=== PATIENT | female | born 1990 | race Caucasian/White ===

== ENCOUNTER 2018-05-08 16:09 | Emergency (ER) | payer MEDICAID, OTHER ==
[~2018-05-08] VITALS: Ht 157.5 cm; Wt 72.2 kg
[2018-05-08 17:16] LABS: BASOPHILS % (AUTO) 0.3 % (0-1); EOSINOPHILS # (AUTO) 0.1 X10'3 (0-0.9); HEMATOCRIT 35.9 % (35.0-45.0); HEMOGLOBIN 12.3 g/dl (12.0-16.0); LYMPHOCYTES # (AUTO) 1.8 X10'3 (1.1-4.8); MEAN CORPUSCULAR HEMOGLOBIN 31.1 PG (27.0-31.0); MEAN CORPUSCULAR HGB CONC 34.4 % (33.0-36.5); MEAN CORPUSCULAR VOLUME 90.5 FL (78-98); MEAN PLATELET VOLUME 8.2 FL (7.4-10.4); MONOCYTES # (AUTO) 0.7 X10'3 (0-0.9); MONOCYTES % (AUTO) 7.6 % (2-12); NEUTROPHILS # (AUTO) 7.1 X10'3 (1.8-7.7); NEUTROPHILS % (AUTO) 73.1 % (42-75); PLATELET COUNT 202 X10'3 (140-440); RED BLOOD COUNT 3.96 X10'6 (4.20-5.60); RED CELL DISTRIBUTION WIDTH 12.6 % (11.5-14.5); WHITE BLOOD COUNT 9.7 X10'3 (4.5-11.0)
[2018-05-08] MEDS ORDERED: ondansetron/PF 4mg/2ml inj IV ONE (17:20)
[2018-05-08] MEDS ORDERED: morphine 4 MG/ML inj SYRINge IV ONE (17:20)
[2018-05-08 17:25] LABS: INR 1.2 INR; PROTHROMBIN TIME 12.4 SECONDS (9.0-12.0)
[2018-05-08 17:33] LABS: ALANINE AMINOTRANSFERASE 30 U/L (12-78); ALBUMIN 3.4 G/DL (3.4-5.0); ALKALINE PHOSPHATASE 75 IU/L (46-116); ANION GAP 10 (8-16); ASPARTATE AMINO TRANSFERASE 10 U/L (10-37); BILIRUBIN,TOTAL 0.4 MG/DL (0.1-1.0); BLOOD UREA NITROGEN 4 MG/DL (7-18); BUN/CREATININE RATIO 4.1 (6.6-38.0); CALCIUM 8.5 MG/DL (8.5-10.1); CHLORIDE 101 MMOL/L (99-107); CREATININE 0.97 MG/DL (0.40-0.90); GLUCOSE 92 MG/DL (70-104); LIPASE 115 U/L (73-393); POTASSIUM 3.2 MMOL/L (3.5-5.1); SODIUM 136 MMOL/L (135-145); TOTAL CARBON DIOXIDE 24.7 MMOL/L (24-32); TOTAL PROTEIN 6.9 G/DL (6.4-8.2); eGFR 68 ML/MIN
[2018-05-08] MEDS ORDERED: normal saline 1000ML IV soln IVB ONE (17:40)
[2018-05-08 17:56] LABS: URINE HCG NEGATIVE (NEG)
[2018-05-08 18:02] LABS: UA COLLECTION TYPE CLN CATCH MIDSTREAM
[2018-05-08 18:03] LABS: CLARITY,URINE CLOUDY (Clear); COLOR,URINE YELLOW (Yellow); GLUCOSE, URINE NEGATIVE (Neg); KETONES,URINE 15 mg/dl (Neg); LEUKOCYTE ESTERASE ,URINE MODERATE (Neg); NITRITES, URINE NEGATIVE (Neg); OCCULT BLOOD,URINE MODERATE (Neg); PROTEIN,URINE NEGATIVE (Neg); UROBILINOGEN,URINE 0.2 E.U/dL (0.2-1.0)
[2018-05-08 18:18] LABS: BACTERIA,URINE FEW /HPF (Neg); SQUAMOUS EPITHELIAL CELL,UR FEW /LPF (FEW); WBC,URINE TNTC /HPF (0-4)
[2018-05-08] MEDS ORDERED: SULF1TAB49 PO (18:53)
[2018-05-08] MEDS ORDERED: HYDR-569 PO (19:11)
[2018-05-08 19:15] VITALS: BP 105/64
== END 2018-05-08 19:16 | disposition home or self-care (01) ==
LOC: ER 16:09
DX: N12 Tubulo-interstitial nephritis, not specified as acute or chronic (principal); Z79.899 Other long term (current) drug therapy
CPT/HCPCS: 36415; 76700; 80053; 81001; 81025; 83690; 85025; 85610; 87077; 87088; 87186; 96361; 96374; 96375; 99285; J2270; J2405; J7030

== ENCOUNTER 2019-07-07 21:49 | Emergency (ER) | payer MEDICAID, OTHER ==
[~2019-07-07] VITALS: Ht 157.5 cm; Wt 81.8 kg
[~2019-07-07 21:49] MED LIST: HYDR-4383 PO
[2019-07-07 21:54] VITALS: BP 124/68
--- NOTE | 2019-07-07 22:30 | NUR ---
PT C/O LEFT ARM PAIN, CANNOT LIFT ABOVE SHOULDER AND CRACKED TOOTH
[2019-07-07] MEDS ORDERED: cyclobenzaprine 10mg tablet PO ONE (23:05)
[2019-07-07] MEDS ORDERED: triamcinolone acetonide 40mg/ml inj IM ONE (23:15)
[2019-07-07] MEDS ORDERED: AMOX500C2 PO (23:32)
[2019-07-07] MEDS ORDERED: CHLO473M3 PO (23:32)
[2019-07-07] MEDS ORDERED: LIDO700A32 TOP (23:38)
== END 2019-07-07 23:49 | disposition home or self-care (01) ==
LOC: ER 21:50
DX: S46.812A Strain of other muscles, fascia and tendons at shoulder and upper arm level, left arm, initial encounter (principal); M54.2 Cervicalgia; K08.89 Other specified disorders of teeth and supporting structures; K02.9 Dental caries, unspecified; R20.0 Anesthesia of skin; Z79.899 Other long term (current) drug therapy; X50.9XXA Other and unspecified overexertion or strenuous movements or postures, initial encounter; Y93.89 Activity, other specified; Y92.89 Other specified places as the place of occurrence of the external cause; Y99.8 Other external cause status
CPT/HCPCS: 73030; 96372; 99283; J3301

== ENCOUNTER 2019-10-05 16:11 | Emergency (ER) | payer MEDICAID ==
[~2019-10-05] VITALS: Ht 157.5 cm; Wt 83.4 kg
[~2019-10-05 16:11] MED LIST changes: +CHLO473M3 PO; +LIDO700A32 TOP
[2019-10-05 16:50] VITALS: BP 113/79
[2019-10-05] MEDS ORDERED: PENI500T2 PO (17:17)
[2019-10-05] MEDS ORDERED: IBUP-1984 PO (17:17)
[2019-10-05] MEDS ORDERED: HYDROcodone/acetaminophen 5mg/325mg tablet PO ONE (17:20)
[2019-10-05] MEDS ORDERED: ondansetron 4mg rapidly disintigrating tab PO ONE (17:20)
== END 2019-10-05 17:53 | disposition home or self-care (01) ==
LOC: ER 16:11
DX: K02.9 Dental caries, unspecified (principal); R51 Headache; Z79.899 Other long term (current) drug therapy
CPT/HCPCS: 99283

== ENCOUNTER 2020-01-04 17:59 | Emergency (ER) | payer MEDICAID ==
[~2020-01-04] VITALS: Ht 157.5 cm; Wt 77.8 kg
--- NOTE | 2020-01-04 19:21 | NUR ---
UPDATED PLAN OF CARE WITH PATIENT . PATIENT REPORTS TOOTH PAIN A 04/05 . WILL NOTIFY RAIMUNDO CHAN OF PT CURRENT WAIT TIME AND PAIN STATUS
[2020-01-04] MEDS ORDERED: PENI500T2 PO (20:11)
[2020-01-04 20:29] VITALS: BP 120/65
== END 2020-01-04 20:30 | disposition home or self-care (01) ==
LOC: ER 17:59
DX: K08.89 Other specified disorders of teeth and supporting structures (principal); Z79.2 Long term (current) use of antibiotics; Z79.899 Other long term (current) drug therapy
CPT/HCPCS: 99283

== ENCOUNTER 2024-09-09 14:10 | Emergency (ER) | payer MEDICAID ==
[~2024-09-09] VITALS: Ht 157.5 cm; Wt 91.2 kg
[~2024-09-09 14:10] MED LIST changes: +CHLO473M13 PO; -CHLO473M3 PO
[2024-09-09 14:13] VITALS: BP 121/73; PULSE 89; RESP 16; TEMP 89; O2SAT 97
[2024-09-09] MEDS ORDERED: HYDR-3965 PO (15:40)
[2024-09-09] MEDS ORDERED: AMOX-117 PO (15:40)
== END 2024-09-09 16:01 | disposition home or self-care (01) ==
LOC: ER 14:11
DX: K04.7 Periapical abscess without sinus (principal); Z79.899 Other long term (current) drug therapy
CPT/HCPCS: 99283

== ENCOUNTER 2025-05-18 20:15 | Emergency (ER) | payer MEDICAID ==
[~2025-05-18] VITALS: Ht 157.5 cm; Wt 79.1 kg
[~2025-05-18 20:15] MED LIST changes: +LIDO-52 TOP; -LIDO700A32 TOP
[2025-05-18 20:39] LABS: MEAN PLATELET VOLUME 8.4 FL (7.4-10.4); RED CELL DISTRIBUTION WIDTH 13.4 % (11.5-14.5)
[2025-05-18 20:53] LABS: CREATININE 0.99 MG/DL (0.40-0.90); TOTAL CARBON DIOXIDE 27.4 MMOL/L (24-32); eCRCL 63 ML/MIN; eGFR 64 ML/MIN
[2025-05-18 21:42] LABS: URINE HCG NEGATIVE (NEG)
[2025-05-18 21:53] LABS: LEUKOCYTE ESTERASE ,URINE MODERATE (Neg); NITRITES, URINE POSITIVE (Neg); OCCULT BLOOD,URINE MODERATE (Neg)
[2025-05-18 21:58] LABS: UA COLLECTION TYPE CLN CATCH MIDSTREAM
[2025-05-18 22:01] LABS: SQUAMOUS EPITHELIAL CELL,UR FEW /LPF (FEW)
[2025-05-18 22:02] LABS: MUCUS STRANDS MODERATE /LPF (Neg)
--- NOTE | 2025-05-18 23:02 | Physician Documentation ---
History of Present Illness ~ Chief Complaint: Flank Pain Stated Complaint: ABD PAIN Time Seen by MD: 22:56 Primary Medical Doctor: [facility] HPI Patient presents to the emergency room with right-sided flank pain over the last two days. Prior instances with history of pyelonephritis and she states this feels similar. Subjective fevers. Positive dysuria. Medication Reconciliation Allergies: Coded Allergies: No Known Allergies (Unverified , 04/09/13) Scheduled Chlorhexidine Gluconate (Periogard), 15 ML PO Q12H Hydrocodone/Acetaminophen ([place] 5-325 Tablet), 1 TAB PO NIGHTLY Lidocaine (Lidoderm), 1 PATCH TOP Q12H PRN Past Medical History Past Medical History: No Pertinent History Past Surgical History: no surgical history Alcohol Use: None Drug Use: none Lives with: Family Lives In: Home Occupation: employed Review of Systems ROS All review of systems negative except as per HPI Physical Exam Vital Signs: Temperature: 98.5, Source: Oral, Heart Rate: 100, Respiratory Rate: 16, BP: 122/68, Pulse Oximetry: 98, Weight: 79.100 Oxygen Flow Rate: 0 Physical Exam General: Patient is awake, alert, oriented x4 in no acute distress and well appearing.~ Head: Normocephalic and atraumatic. Eyes: Conjunctival normal. EOMI. PERRL. ENT: Mucous membranes moist. Neck: Supple, trachea is midline. Chest: Clear to auscultation bilaterally without rales, rhonchi, or wheezes. There is no accessory muscle use or retractions. Cardiac: RRR without murmurs, gallops, or rubs. Abd: Soft, nondistended, nontender, with normoactive bowel sounds. No guarding, rebound, or rigidity. Extremities: Normal strength. Normal range of motion. No deformities or edema. Back: Right CVA tenderness noted Progress Results/Orders Results/Orders Orders - AUDI PEREZ MD Straight Cath For Urine Sample (05/18/25 20:18) Cult Urine + [place] [address] (05/18/25 22:02) Ceftriaxone Im Kit W/Lidocaine (Rocephin (05/18/25 23:05) Completed Orders - AUDI PEREZ MD Hcg, Ur Ql (05/18/25 20:18) Cbc/Diff (05/18/25 20:18) Lipase (05/18/25 20:18) CMP (05/18/25 20:18) Ua W/Microscopic, Cult If Ind (05/18/25 20:20) Vital Signs 05/18/25 20:16 Temp 98.5 Pulse 100 Resp 16 B/P (MAP) 122/68 Pulse Ox 98 O2 Flow Rate 0 Laboratory Tests Test 05/18/25 20:20 05/18/25 20:24 Urine Specimen Description Cln catch midstream Urine Color Yellow Urine Clarity Cloudy Urine pH 6.0 Urine Specific [place] 1.025 Urine Protein 100 H Urine Glucose (UA) Negative Urine Ketones Trace H Urine Occult Blood Moderate H Urine Nitrite Positive H Urine Bilirubin Small Urine Urobilinogen 1.0 Urine Leukocyte Esterase Moderate H Urine RBC 3-10 Urine WBC 50-100 H Urine Squamous Epithelial Cells Few Urine Bacteria 2+ Urine Mucus Moderate Urine Culture Indicated Indicated Volume Urine Centrifuged 10 ml Urine HCG, Qualitative Negative Urine Comment White Blood Count 11.1 H Red Blood Count 4.36 Hemoglobin 13.6 Hematocrit 40.3 Mean Corpuscular Volume 92.3 Mean Corpuscular Hemoglobin 31.1 H Mean Corpuscular Hemoglobin Concent 33.7 Red Cell Distribution Width 13.4 Platelet Count 251 Mean Platelet Volume 8.4 Neutrophils (%) (Auto) 73.8 Lymphocytes (%) (Auto) 19.9 L Monocytes (%) (Auto) 4.8 Eosinophils (%) (Auto) 1.0 Basophils (%) (Auto) 0.5 Neutrophils # (Auto) 8.2 H Lymphocytes # (Auto) 2.2 Monocytes # (Auto) 0.5 Eosinophils # (Auto) 0.1 Basophils # (Auto) 0.1 CBC Comment Sodium Level 143 Potassium Level 3.9 Chloride Level 107 Carbon Dioxide Level 27.4 Anion Gap 9 Blood Urea Nitrogen 8 Creatinine 0.99 H Estimated GFR/1.73 m2 64 BUN/Creatinine Ratio 8.1 L Glucose Level 92 Calcium Level 8.7 Total Bilirubin 0.4 Aspartate Amino Transf (AST/SGOT) 8 L Alanine Aminotransferase (ALT/SGPT) 17 Alkaline Phosphatase 72 Total Protein 7.7 Albumin 3.8 Globulin 3.9 Albumin/Globulin Ratio 1.0 L Lipase 50 Chemistry Comments Microbiology Date/Time Source Procedure Growth Status 05/18/25 22:02 Urine Clean Catch Midstream Urine Culture - Preliminary Culture received. Resulted Medical Decision Making Findings Patient presented to the emergency room for evaluation of dysuria and flank pain as per HPI. Differentials include but are not limited to pyelonephritis, kidney stone, aortic pathology, shingles. Urinalysis and physical exam consistent with pyelonephritis we will treat her accordingly. ER precautions discussed. Departure Disposition: HOME / SELF CARE / HOMELESS Impression: Primary Impression: Acute pyelonephritis Condition: Stable Discharge Instructions: Pyelonephritis, Adult Referrals: NO PRIMARY CARE PROVIDER (PCP) Prescriptions Phenazopyridine HCl (Pyridium) 200 Mg Tablet 1 TAB PO Q8H for urinary discomfort for 2 Days, #6 TAB 0 Refills Prov: AUDI PEREZ MD 05/18/25 Cephalexin*Monohydrate* (Keflex*) 500 Mg Capsule 1 CAP PO Q12H for 10 Days, #20 CAP Prov: AUDI PEREZ MD 05/18/25 Education Educated: Patient Educated regarding: diagnosis, treatment, need for follow up Signature Scribe Signature: No scribe Attestation: The note accurately reflects work and decisions made by me.Audi Perez MD 05/18/25 23:09 AUDI PEREZ MD May 18, 2025 23:02
[2025-05-18] MEDS ORDERED: CEPH-585 PO (23:09)
[2025-05-18] MEDS ORDERED: PHEN-716 PO (23:09)
[2025-05-18] MEDS ORDERED: HYDR-3965 PO (23:16)
[2025-05-18] MEDS: phenazopyridine 100mg tablet PO ONE (23:52)
[2025-05-18] MEDS: CefTRIAXone 1000mg IM Kit (w/lidocaine diluent) IM ONE (23:53)
[2025-05-18 23:57] VITALS: BP 126/78; PULSE 66; RESP 16; TEMP 98.5; O2SAT 98
== END 2025-05-18 23:58 | disposition home or self-care (01) ==
LOC: ER 20:15
DX: N10 Acute pyelonephritis (principal); Z79.899 Other long term (current) drug therapy
CPT/HCPCS: 36415; 80053; 81001; 81025; 83690; 85025; 87088; 96372; 99283; J0696; 87077; 87186